=== PATIENT | female | born 1975 | race Caucasian/White ===

== ENCOUNTER 2016-08-06 16:49 | Emergency (ER) | payer OTHER ==
[2016-08-06 17:56] LABS: HEMOGLOBIN 12.9 gm/dl (12.3-15.3); RED BLOOD COUNT 4.56 M/UL (4.00-5.10); WHITE BLOOD COUNT 9.8 K/UL (4.5-11.0)
[2016-08-06 18:25] LABS: BUN/CREATININE RATIO 27 (0-10)
== END 2016-08-06 21:28 | disposition left against medical advice (07) ==
LOC: ER1 16:49
PROVIDERS: Emergency Medicine
DX: R07.9 Chest pain, unspecified (principal); R06.00 Dyspnea, unspecified; R11.0 Nausea; F17.200 Nicotine dependence, unspecified, uncomplicated; Z88.1 Allergy status to other antibiotic agents; M19.90 Unspecified osteoarthritis, unspecified site; Z79.1 Long term (current) use of non-steroidal anti-inflammatories (NSAID); F41.9 Anxiety disorder, unspecified; Z79.899 Other long term (current) drug therapy
CPT/HCPCS: 36415; 71010; 80053; 82550; 82553; 83874; 84484; 85025; 85379; 93005; 99285

== ENCOUNTER → 2021-01-04 | Outpatient (CLI) | payer OTHER ==
[~2021-01-04] MED LIST: AMITRIPTYLINE150 MG PO; BENTYL 20MG TAB20 MG PO; CEFUROXIME500 MG PO; FLONASE ALLER15.8 ML; LACTULOSE PO; LEVOTHYROXINE75 MCG PO; LORATADINE10 MG PO; MELATONIN10 M2 PO; VITAMIN D250 MCG PO; ZOFRAN4 MG PO; ZOLOFT100 MG PO
[2021-01-04 13:41] LABS: HEMOGLOBIN 13.2 gm/dl (12.3-15.3); RED BLOOD COUNT 4.49 M/UL (4.00-5.10); WHITE BLOOD COUNT 11.1 K/UL (4.5-11.0)
[2021-01-04 14:06] LABS: BUN/CREATININE RATIO 20 (0-10)
[2021-01-05 08:14] LABS: VITAMIN D, 25-HYDROXY 34.5 ng/mL (30.0-100.0)
[2021-01-05 09:14] LABS: SARS COV-2 IGG AB Negative (Negative)
[2021-01-05 15:09] LABS: SARS COV-2 IGM AB Negative (Negative)
== END ==
LOC: LAB 13:12
PROVIDERS: Physician Assistant
DX: E03.9 Hypothyroidism, unspecified (principal); E66.9 Obesity, unspecified; E55.9 Vitamin D deficiency, unspecified; Z20.822 Contact with and (suspected) exposure to COVID-19
CPT/HCPCS: 80053; 80061; 85025; 86769

== ENCOUNTER 2021-06-24 19:10 | Emergency (ER) | payer OTHER ==
[2021-06-24 19:42] LABS: HEMOGLOBIN 14.4 gm/dl (12.3-15.3); RED BLOOD COUNT 4.9 M/UL (4.00-5.10); WHITE BLOOD COUNT 16.4 K/UL (4.5-11.0)
[2021-06-24 20:05] LABS: BUN/CREATININE RATIO 20 (0-10)
== END 2021-06-24 22:26 | disposition home or self-care (01) ==
LOC: ER1 19:10
PROVIDERS: Student in an Organized Health Care Education/Training Program
DX: R55 Syncope and collapse (principal); E03.9 Hypothyroidism, unspecified; F17.210 Nicotine dependence, cigarettes, uncomplicated
CPT/HCPCS: 71045; 80053; 82550; 82553; 84439; 84443; 84484; 85025; 85379; 93005; 94760; 99285; Q9967

== ENCOUNTER → 2021-07-05 | Outpatient (CLI) | payer OTHER | LOC: ECHO 09:00 | DX: R55 Syncope and collapse (principal); R06.02 Shortness of breath; I08.2 Rheumatic disorders of both aortic and tricuspid valves | CPT/HCPCS: ECHO; 93306 ==

== ENCOUNTER 2021-07-21 12:07 | Emergency (ER) | payer OTHER ==
[2021-07-21 13:34] LABS: HEMOGLOBIN 12.5 gm/dl (12.3-15.3); RED BLOOD COUNT 4.27 M/UL (4.00-5.10)
[2021-07-21 14:33] LABS: BUN/CREATININE RATIO 20 (0-10)
[2021-07-21] MEDS ORDERED: ZITHROMAX250 MG PO (17:04)
[2021-07-21] MEDS ORDERED: OMNICEF 300 MG300 MG PO (17:04)
== END 2021-07-21 17:40 | disposition home or self-care (01) ==
LOC: ER1 12:07
DX: J18.9 Pneumonia, unspecified organism (principal); F17.210 Nicotine dependence, cigarettes, uncomplicated; Z88.1 Allergy status to other antibiotic agents; Z20.822 Contact with and (suspected) exposure to COVID-19
CPT/HCPCS: 71045; 80053; 82550; 82553; 84484; 85025; 93005; 99285; Q9967; U0002

== ENCOUNTER → 2021-08-17 | Outpatient (CLI) | payer OTHER ==
[~2021-08-17] MED LIST changes: +OMNICEF 300 MG300 MG PO; +ZITHROMAX250 MG PO
== END ==
LOC: HEART 5 13:00
DX: R55 Syncope and collapse (principal)

== ENCOUNTER → 2021-09-22 | Outpatient (CLI) | payer OTHER | LOC: LAB 11:13 | DX: E03.9 Hypothyroidism, unspecified (principal); J18.9 Pneumonia, unspecified organism | CPT/HCPCS: 36415; 71046; 84443 ==

== ENCOUNTER → 2021-10-11 | Outpatient (CLI) | payer OTHER | LOC: EMI 16:27 | DX: G44.89 Other headache syndrome (principal); G43.909 Migraine, unspecified, not intractable, without status migrainosus; R55 Syncope and collapse | CPT/HCPCS: 70551 ==